=== PATIENT | female | born 1970 | race African-American/Black ===

== ENCOUNTER 2016-07-30 15:38 | Emergency (ER) | payer OTHER ==
[~2016-07-30] VITALS: Ht 154.9 cm; Wt 77.6 kg
[2016-07-30] MEDS ORDERED: ZOLOFT25 MG PO (16:18)
[2016-07-30] MEDS ORDERED: TRAMADOL 50 MG50 MG PO (16:20)
[2016-07-30] MEDS ORDERED: PROTONIX 20 MG20 MG PO (16:20)
[2016-07-30 17:10] LABS: URINE BILIRUBIN NEGATIVE (Negative); URINE BLOOD NEGATIVE (Negative); URINE COLOR YELLOW; URINE GLUCOSE-RANDOM* NEGATIVE (Negative); URINE KETONES NEGATIVE (Negative); URINE NITRITE NEGATIVE (Negative); URINE PROTEIN (DIPSTICK) NEGATIVE (Negative)
[2016-07-30 17:20] LABS: BACTERIA 1-9 Few /HPF (None Seen); CASTS None Seen /LPF (None Seen); CRYSTALS None Seen /LPF (None Seen); SQUAMOUS 0-3 Few /LPF (0-3); URINE RBC None Seen /HPF (0-2); URINE WBC 0-5 Rare /HPF (0-5)
[2016-07-30 20:00] VITALS: BP 122/77
== END 2016-07-30 20:01 | disposition home or self-care (01) ==
LOC: ER 15:38
PROVIDERS: Nurse Practitioner
DX: T63.441A Toxic effect of venom of bees, accidental (unintentional), initial encounter (principal); G43.909 Migraine, unspecified, not intractable, without status migrainosus; J45.909 Unspecified asthma, uncomplicated; Z90.710 Acquired absence of both cervix and uterus; Z88.5 Allergy status to narcotic agent; Z88.8 Allergy status to other drugs, medicaments and biological substances; Z88.1 Allergy status to other antibiotic agents; Y92.89 Other specified places as the place of occurrence of the external cause

== ENCOUNTER 2017-12-12 09:21 | Emergency (ER) | payer OTHER ==
[~2017-12-12] VITALS: Ht 154.9 cm; Wt 81.2 kg
[~2017-12-12 09:21] MED LIST: PROTONIX 20 MG20 MG PO; TRAMADOL 50 MG50 MG PO; ZOLOFT25 MG PO
[2017-12-12 09:58] LABS: URINE BILIRUBIN NEGATIVE (Negative); URINE BLOOD 3+ (Negative); URINE CLARITY CLEAR; URINE COLOR YELLOW; URINE GLUCOSE-RANDOM* NEGATIVE (Negative); URINE KETONES NEGATIVE (Negative); URINE LEUKOCYTES-REFLEX TRACE (Negative); URINE NITRITE-REFLEX NEGATIVE (Negative); URINE PROTEIN (DIPSTICK) NEGATIVE (Negative); URINE SPECIFIC GRAVITY 1.025 (1.005-1.035); URINE UROBILINOGEN 0.2 E.U./dl (0.2-1.0)
[2017-12-12 10:18] LABS: SQUAMOUS >10 Many /LPF (0-3)
[2017-12-12 10:20] LABS: CASTS None Seen /LPF (None Seen); CRYSTALS None Seen /LPF (None Seen); URINE RBC >20 Many /HPF (0-2)
[2017-12-12 10:21] LABS: URINE WBC-REFLEX 6-15 Few /HPF (0-5)
[2017-12-12] MEDS ORDERED: OMEPRAZOLE40 MG PO (10:35)
[2017-12-12 10:57] LABS: ABSOLUTE NEUTROPHILS 3.7 thou/uL (1.4-8.2); BASOPHILS 1.2 % (0.0-2.0); EOSINOPHILS 1.9 % (0.0-3.0); HEMATOCRIT 38.9 % (37.0-47.0); HEMOGLOBIN 13.3 gm/dL (12.0-15.0); LYMPHOCYTES 32.6 % (24.0-44.0); MCH 30.4 pg (26.0-34.0); MCHC 34.1 g/dL (28.0-37.0); MONOCYTES 4.8 % (1.0-8.0); PLATELET COUNT 249 thou/uL (150-400); POLYS 59.5 % (36.0-66.0); RBC 4.37 mil/uL (4.20-5.00); RDW 14.4 % (10.5-14.5); WBC 6.2 thou/uL (4.0-11.0)
[2017-12-12 11:04] LABS: CALCIUM 9.5 mg/dL (8.5-10.1); CREATININE 0.8 mg/dL (0.6-1.0); POTASSIUM 3.5 mmol/L (3.5-5.1)
[2017-12-12] MEDS ORDERED: MOBIC7.5 MG PO (11:11)
[2017-12-12] MEDS ORDERED: LEVAQUIN 500 M500 M2 PO (11:11)
[2017-12-12] MEDS ORDERED: CIPRO500 MG PO (11:14)
[2017-12-12 11:17] LABS: ALBUMIN 3.8 g/dL (3.4-5.0); TOTAL BILIRUBIN 0.4 mg/dL (<0.1-1.0); TOTAL PROTEIN 7.8 g/dL (6.4-8.2)
[2017-12-12 12:09] VITALS: BP 132/78
== END 2017-12-12 12:11 | disposition home or self-care (01) ==
LOC: ER 09:21
PROVIDERS: Physician Assistant
DX: N39.0 Urinary tract infection, site not specified (principal); J45.909 Unspecified asthma, uncomplicated; G43.909 Migraine, unspecified, not intractable, without status migrainosus; K21.9 Gastro-esophageal reflux disease without esophagitis; Z88.5 Allergy status to narcotic agent; Z88.8 Allergy status to other drugs, medicaments and biological substances; Z88.2 Allergy status to sulfonamides; Z90.710 Acquired absence of both cervix and uterus; Z98.890 Other specified postprocedural states

== ENCOUNTER 2019-05-25 23:27 | Emergency (ER) | payer OTHER ==
[~2019-05-25] VITALS: Ht 154.9 cm; Wt 84.4 kg
[~2019-05-25 23:27] MED LIST changes: +CIPRO500 MG PO; +LEVAQUIN 500 M500 M2 PO; +METROGEL-VAGINA70 GM VAG; +MOBIC7.5 MG PO; +OMEPRAZOLE40 MG PO
[2019-05-26] MEDS ORDERED: MELOXICAM15 MG PO (00:19)
[2019-05-26] MEDS ORDERED: TRAMADOL 50 MG50 MG PO (00:19)
[2019-05-26 00:34] VITALS: BP 155/84
== END 2019-05-26 00:41 | disposition home or self-care (01) ==
LOC: ER 23:27
DX: M76.9 Unspecified enthesopathy, lower limb, excluding foot (principal); M25.561 Pain in right knee; J45.909 Unspecified asthma, uncomplicated; G43.909 Migraine, unspecified, not intractable, without status migrainosus; Z90.710 Acquired absence of both cervix and uterus; Z91.030 Bee allergy status; Z88.5 Allergy status to narcotic agent; Z88.8 Allergy status to other drugs, medicaments and biological substances; Z88.6 Allergy status to analgesic agent; Z88.2 Allergy status to sulfonamides; Z98.890 Other specified postprocedural states

== ENCOUNTER 2021-02-16 13:37 | Emergency (ER) | payer OTHER ==
[~2021-02-16] VITALS: Ht 154.9 cm; Wt 81.2 kg
[~2021-02-16 13:37] MED LIST changes: +MELOXICAM15 MG PO
[2021-02-16 14:00] VITALS: BP 123/82
[2021-02-16] MEDS ORDERED: VICTOZA0.6 MG/0.1 SUBQ (14:14)
[2021-02-16] MEDS ORDERED: ALBUTEROL2.5 MG/31 INH (15:47)
[2021-02-16] MEDS ORDERED: TESSALON PERLE100 MG PO (15:47)
== END 2021-02-16 15:57 | disposition home or self-care (01) ==
LOC: ER 13:37
PROVIDERS: Physician Assistant
DX: J06.9 Acute upper respiratory infection, unspecified (principal); Z20.822 Contact with and (suspected) exposure to COVID-19; J45.909 Unspecified asthma, uncomplicated; G43.909 Migraine, unspecified, not intractable, without status migrainosus; Z90.710 Acquired absence of both cervix and uterus; Z98.890 Other specified postprocedural states; Z88.5 Allergy status to narcotic agent; Z88.2 Allergy status to sulfonamides; Z88.8 Allergy status to other drugs, medicaments and biological substances; Z88.6 Allergy status to analgesic agent; Z91.030 Bee allergy status